=== PATIENT | female | born 1955 | race Caucasian/White ===

== ENCOUNTER 2018-09-19 10:15 | Emergency (ER) | payer OTHER ==
[~2018-09-19] VITALS: Ht 165.1 cm; Wt 90.0 kg
[~2018-09-19 10:15] MED LIST: CITA10TA10 PO; OMEP20CA9 PO
[2018-09-19 10:19] VITALS: Ht 165.1 cm; Wt 90.0 kg
[2018-09-19] MEDS ORDERED: morphine 4 MG/ML VIAL IV STA ×2 (10:38→11:30)
[2018-09-19] MEDS ORDERED: METF100010 PO (12:15)
[2018-09-19] MEDS ORDERED: SERT-165 PO (12:16)
[2018-09-19] MEDS ORDERED: morphine 2 MG INJ IV STA (13:07)
[2018-09-19] MEDS ORDERED: HYDR-4011 PO (13:47)
--- NOTE | 2018-09-19 13:52 | ERD ---
ER Documentation Chief Complaint Chief Complaint LT SHOULDER PAIN S/P MECHANICAL GROUND LEVEL FALL HPI 63-year-old female presents by paramedics complaining of left shoulder pain. Patient was in her usual state of health until just prior to arrival which time she had a mechanical, non-syncopal fall. She fell down hurting her neck, her left shoulder. She reports no loss of consciousness. Patient reports no medical complaints. ROS All systems reviewed and are negative except as per history of present illness. Medications Home Meds Active Scripts Hydrocodone/Acetaminophen ([place] 5-325 Tablet) 1 Each Tablet, 1 TAB PO Q6H PRN for PAIN, #7 TAB Prov:GEOFFREY FIELD 09/19/18 Reported Medications Sertraline Hcl* (Sertraline Hcl*) 100 Mg Tablet, 100 MG PO QHS, #30 TAB 09/19/18 Metformin Hcl* (Metformin Hcl*) 1,000 Mg Tablet, 1000 MG PO WITH BREAKFAST DI NNE, #60 TAB 09/19/18 Discontinued Reported Medications Citalopram Hydrobromide* (Celexa*) 10 Mg Tablet, 10 MG PO PRN 04/06/12 Omeprazole* (Prilosec*) 20 Mg Capsule.dr, 20 MG PO DAILY 04/06/12 Allergies Allergies: Coded Allergies: Sulfa (Sulfonamide Antibiotics) (Verified Allergy, Unknown, 09/19/18) iodine (Verified Allergy, Unknown, 09/19/18) PMhx/Soc History of Surgery: Yes (HYSTERECTOMY, APPY) Anesthesia Reaction: No Hx Neurological Disorder: No Hx Respiratory Disorders: No Hx Cardiac Disorders: Yes (ARRYTHMIA, NOT CURRENTLY TREATED BY MEDS) Hx Psychiatric Problems: Yes (DEPRESSION) Hx Miscellaneous Medical Probl: Yes (GASTRITIS, DM) Hx Alcohol Use: No Hx Substance Use: No Hx Tobacco Use: No Smoking Status: Never smoker Physical Exam Vitals Vital Signs Date Temp Pulse Resp B/P (MAP) Pulse Ox O2 O2 Flow FiO2 Time Delivery Rate 09/19/18 98.3 68 16 172/77 98 Nasal 11:53 (108) Cannula 09/19/18 98.3 80 16 213/98 98 10:19 (136) Physical Exam General: Well developed, well nourished in no acute distress HEENT: Scalp atraumatic with no laceration or evidence of skull fracture; no signs of basilar skull fracture. Face symmetric, stable and atraumatic Neck: Full range of motion without discomfort or neurologic symptoms, no midline cervical spine tenderness, step-off, or evidence of significant trauma CV: Regular rate, rhythm, no murmurs appreciated Lungs: Clear to auscultation bilaterally with no chest wall trauma appreciated, chest wall stable with no crepitus Abdomen: Soft, atraumatic and non-tender in all 4 quadrants Extremities: Left shoulder tenderness with no gross deformity or obvious dislocation. The other extremities appear to be normal full range of motion Back: No thoracic or lumbar midline tenderness, no step-off or evidence of significant trauma Neurologic: Awake, alert and oriented, pupils equal, round and reactive to light, face symmetric, tongue midline, moving all extremities with equal and normal strength, sensory exam grossly non-focal Skin: There is an abrasion on the distal aspect of the left knee. Results 24 hrs Current Medications Medications Dose Sig/Abe Start Time Status Last (Trade) Ordered Route PRN Stop Time Admin Dose Reason Admin Morphine 4 mg ONCE STAT 09/19/18 DC 09/19/18 Sulfate IV 10:38 10:49 (morphine) 09/19/18 10:39 Morphine 4 mg ONCE STAT 09/19/18 DC 09/19/18 Sulfate IV 11:30 11:37 (morphine) 09/19/18 11:55 Morphine 2 mg ONCE STAT 09/19/18 DC 09/19/18 Sulfate IV 13:07 13:17 (morphine) 09/19/18 13:08 Procedures/MDM Patient was taken to a room, seen and evaluated. Comfort measures were initiated. Diagnostic tests were ordered and reviewed. Procedure: Immobilization/splinting Patient was placed into a shoulder sling splint. Patient was neurovascularly intact after immobilization. RADIOLOGY: Reviewed with the radiologist REEVALUATION: Diagnostic tests were appreciated. Patient appeared to be clinically comfortable and stable. She was ambulatory and was able to be discharged home. MEDICAL DECISION MAKIN-year-old presents to the emergency department after a fall with a proximal humerus fracture that is nonoperative at this time. Patient is neurovascularly intact. Patient has no indication of other high risk intra-abdominal, intracranial or other significant high risk orthopedic injuries. Patient's pain seems well controlled and seems to be appropriate for outpatient care. Departure Diagnosis: Primary Impression: Humerus fracture Condition: Stable Patient Instructions: Fracture, Shoulder Referrals: DAGOBERTO PERES MD Additional Instructions: Stay in the shoulder sling until you are seen by the specialist. Return for any problems or concerns GEOFFREY FIELD September 19, 2018 13:52
[2018-09-19 15:13] VITALS: BP 146/80; PULSE 82; RESP 14
== END 2018-09-19 15:28 | disposition home or self-care (01) ==
LOC: E/R 10:15
DX: S42.352A Displaced comminuted fracture of shaft of humerus, left arm, initial encounter for closed fracture (principal); E11.9 Type 2 diabetes mellitus without complications; W18.39XA Other fall on same level, initial encounter; Y92.9 Unspecified place or not applicable; Z79.84 Long term (current) use of oral hypoglycemic drugs
CPT/HCPCS: 72125; 73030; 73060; 96374; 96376; 99285; J2270